=== PATIENT | male | born 1945 | race Caucasian/White ===

== ENCOUNTER 2022-09-06 10:53 | Inpatient (IN) ==
--- NOTE | 2022-08-24 15:40 | PAT Medication Instructions ---
Medication Instructions Date of Service August 24, 2022 Home Medications albuterol sulfate 90 mcg/actuation aerosol inhaler 1 inh inhalation QID PRN apixaban 2.5 mg tablet (Eliquis) 2.5 mg PO BID aspirin 81 mg tablet,delayed release 81 mg PO QAM atorvastatin 40 mg tablet 40 mg PO PM clopidogrel 75 mg tablet (Plavix) 75 mg PO DAILY cyanocobalamin (vitamin B-12) 1,000 mcg tablet 1,000 mcg PO 3XWK fluticasone fur. 200 mcg-umeclid 62.5 mcg-vilant 25 mcg inhalat.powder (Trelegy Ellipta) 1 inh inhalation DAILY PRN levothyroxine 75 mcg tablet 75 mcg PO QAM lisinopril 20 mg tablet 20 mg PO QAM montelukast 10 mg tablet (Singulair) 10 mg PO QAM yxaryqjzmurb-fthgqwwm-iklacr tablet (Multivitamin 50 Plus tablet) 1 tab PO QAM ASK your prescriber and surgeon apixaban 2.5 mg tablet (Eliquis) 2.5 mg PO BID aspirin 81 mg tablet,delayed release 81 mg PO QAM clopidogrel 75 mg tablet (Plavix) 75 mg PO DAILY DO NOT take the morning of surgery cyanocobalamin (vitamin B-12) 1,000 mcg tablet 1,000 mcg PO 3XWK lisinopril 20 mg tablet 20 mg PO QAM zrfuoysyyfhq-ihjctudd-vnfows tablet (Multivitamin 50 Plus tablet) 1 tab PO QAM Take morning of surgery With a small sip of water, OTHERWISE NOTHING TO EAT OR DRINK AFTER MIDNIGHT: albuterol sulfate 90 mcg/actuation aerosol inhaler 1 inh inhalation QID PRN(use if needed; please bring with you to hospital day of surgery if possible) fluticasone fur. 200 mcg-umeclid 62.5 mcg-vilant 25 mcg inhalat.powder (Trelegy Ellipta) 1 inh inhalation DAILY PRN(if needed) levothyroxine 75 mcg tablet 75 mcg PO QAM montelukast 10 mg tablet (Singulair) 10 mg PO QAM Take evening before surgery albuterol sulfate 90 mcg/actuation aerosol inhaler 1 inh inhalation QID PRN(if needed) atorvastatin 40 mg tablet 40 mg PO PM Other Notes If you have any questions please call us at [phone] or [phone] or [phone] or [phone]
--- NOTE | 2022-08-29 13:21 | Anesthesiology Consultation ---
Date of Service August 29, 2022 Assessment & Plan (1) Encounter for pre-operative examination: - COVID screening: Per assessment on 08/29: No known COVID-19 positive contacts or current COVID-19 related symptoms. Travel screen negative. Patient vaccinated. At surgeon discretion if preop Covid testing being done. - ASA/plavix/eliquis instructions per surgeon/prescriber - Awaiting most recent cardiology office visit (Dr. Garcia/). Chart Review Chart Review: Patient seen in Pre Admission Testing History Surgery Operation Date: 09/06/22 12:00 Proposed Procedures p Left Transcarotid Artery Revascularization - Ariel Seymour MD Height/Weight Height: 5 ft 10 in Weight: 104 kg Allergies Allergy/AdvReac Type Severity Reaction Status Date / Time rivaroxaban [From Xarelto] Allergy Intermediate Itching, Verified 08/25/22 09:20 rash Medications Home Medications Medication Instructions Recorded Confirmed Last Taken albuterol sulfate 90 mcg/actuation 1 inh inhalation QID PRN SHORT OF 08/24/22 08/24/22 Unknown aerosol inhaler BREATH apixaban 2.5 mg tablet (Eliquis) 2.5 mg PO BID 08/24/22 08/24/22 Unknown aspirin 81 mg tablet,delayed 81 mg PO QAM 08/24/22 08/24/22 Unknown release atorvastatin 40 mg tablet 40 mg PO PM 08/24/22 08/24/22 Unknown clopidogrel 75 mg tablet (Plavix) 75 mg PO DAILY 08/24/22 08/24/22 Unknown cyanocobalamin (vitamin B-12) 1,000 mcg PO 3XWK 08/24/22 08/24/22 Unknown 1,000 mcg tablet fluticasone fur. 200 mcg-umeclid 1 inh inhalation DAILY PRN SHORT 08/24/22 08/24/22 Unknown 62.5 mcg-vilant 25 mcg OF BREATH inhalat.powder (Trelegy Ellipta) levothyroxine 75 mcg tablet 75 mcg PO QAM 08/24/22 08/24/22 Unknown lisinopril 20 mg tablet 20 mg PO QAM 08/24/22 08/24/22 Unknown montelukast 10 mg tablet 10 mg PO QAM 08/24/22 08/24/22 Unknown (Singulair) eimvvtspgnpf-njrkxwbm-atjmpq 1 tab PO QAM 08/24/22 08/24/22 Unknown tablet (Multivitamin 50 Plus tablet) Past Medical History Medical History Acid reflux Occasional Arthritis Asthma CAD (coronary artery disease) 1996 > Stent x1 2018 > Stent "replaced" Follows with Dr. 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 DVT in 2015 History of COVID-19 06/2020 > symptoms resolved History of kidney stones History of prostate cancer s/p prostatectomy Hx of deep venous thrombosis 2006 > Post-op prostatectomy 2015 > Unknown etiology, has been on blood thinner since 2016 Hyperlipidemia Hypertension Hypothyroidism Exercise / Class Metabolic Activity II 4-5 Yardwork/Stairs/Walk up hill Past Family History Family History Other No family history of adverse response to anesthesia Past Surgical History Surgical History H/O prostatectomy H/O sinus surgery POLYPS REMOVED History of colonoscopy History of heart artery stent 1996 > Stent x1 2017 > Stent "replaced" History of lithotripsy History of tonsillectomy and adenoidectomy [place] teeth removed Past Anesthesia History No Hx of Anesthesia Complications and No Family Hx of Anesthesia Complications History of PONV No Hx of PONV and No Hx of Motion Sickness Social History Smoking Status: Former smoker tobacco type: cigarettes Do You Dip or Chew Tobacco: No Smoking End Date: Quit several years ago Hx Alcohol Use: Yes alcohol intake frequency: holidays/special occasions only Hx Substance Use: No substance use type: does not use Review of Systems Patient denies chest pain, shortness of breath, dyspnea on exertion, fever, chills, cough, wheezing, palpitations. Physical Exam Vital Signs VITALS BP 149/77 P 85 TEMP 97.5 SP02 97%RA RESP 18 PHYSICAL Full cervical extension range of motion. Full TMJ range of motion. TMD 4 finger breaths Mallampati Score 2 Dentition: intact, + crowns Lungs: clear throughout to auscultation Cardiac: regular rate and rhythm, no murmurs noted Spine: normal Carotid arteries: negative bruit Extremities: no edema Lab Results Anesthesia Preop Results Results Anesthesia Widget: WBC 8.03 K/ul (4.8-10.8) 08/29/22 Hgb 14.1 g/dl (14.0-18.0) 08/29/22 Hct 39.7 % (42.0-52.0) L 08/29/22 Plt 211 K/uL (130-400) 08/29/22 Na 139 mmol/L (136-145) 08/29/22 K 4.5 mmol/L (3.5-5.1) 08/29/22 Cl 105 mmol/L (98-107) 08/29/22 CO2 27 mmol/L (21-32) 08/29/22 BUN 35 mg/dl (6-23) H 08/29/22 Creat 1.47 mg/dl (0.6-1.4) H 08/29/22 Glucose Level 110 mg/dl (70-99(Fasting)) H 08/29/22 PT 10.7 Seconds (9.0-12.0) 08/29/22 PTT 27.3 Seconds (21.0-31.0) 08/29/22 INR 1.0 (0.9-1.1) 08/29/22 Blood Type A Positive 08/29/22 Antibody Screen NEGATIVE 08/29/22 Testing Electrocardiogram Date: 04/26/22 Sinus arrhythmia. 81 bpm. LAD. Consistent with LAFB. "ECG without significant abnormalities" Chest X-Ray Date: 08/29/22 FINDINGS: Lung volumes are normal. Lungs are clear. There is no pneumothorax or pleural effusion. Cardiac size is at the upper limits of normal. Mediastinal contours are normal. There is no evidence for pulmonary edema. IMPRESSION: No acute cardiopulmonary findings. Echocardiogram Date: 04/08/18 EF 55%. Mild LVH. No significant valvular disease. 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 Cardiac Catheterization Date: 04/05/18 One-vessel obstructive CAD of the LAD. Successful PCI with MYNOR of the mid LAD. Recommendations: Risk factor modification. Maximal medical therapy. Other Testing Neck CTA (08/22/22) Severe (80%) stenosis of the proximal left internal carotid artery due to extensive noncalcified and calcified plaque. Moderate stenosis at the origin of the left external carotid artery. Suspected moderate stenoses at the origins of the bilateral vertebral arteries, suboptimally assessed on this exam due to artifact. COVID-19 Risk Screen Screening Information COVID-19 Screen Date: 08/29/22 Exposure 21 Days Family/Household +COVID Last 21 Days: No Exposure 10 Days Any COVID Exposure Last 10 Days: No Symptoms Last 10 Days Experienced COVID Sx Last 10 Days: No + COVID 0-90 Days COVID + in Last 0-90 Days: No
[~2022-09-06 10:53] MED LIST: CEFAZOLIN 2,000 MG/15 ML SYR IV SCH; LACTATED RINGER'S 1,000 ML BAG IV SCH
[2022-09-06] MEDS ORDERED: ALBUMIN HUMAN 5% 12.5 GM/250 ML VIAL IV ONE (10:54)
--- NOTE | 2022-09-06 10:58 | History & Physical Report ---
Date of Service September 06, 2022 History of Present Illness Primary Care Provider: NO PCP Name: CHAGO VAUGHN Patient Number: [id number] : 1945 Date of Service: 08/17/2022 Chief Complaint: _Follow-up for carotid stenosis HPI: _Mr. Vaughn is an elderly male who presents to Dr. Seymour's vascular surgery clinic today for a 6-month follow-up visit regarding his history of carotid stenosis. Patient was originally seen by Dr. Seymour and myself about 6 months ago, after a carotid ultrasound performed at an outside facility had indicated worsening of his left ICA stenosis. At the time the velocities appeared to indicate approximately 80% stenosis. Since patient was asymptomatic from this, we advised him to return in 6 months for reevaluation with a new ultrasound. Patient denies any significant changes in his health since being seen here 6 months ago. He specifically denies any symptoms of cerebrovascular insufficiency, including amaurosis, extremity weakness numbness or tingling, difficulty speaking or swallowing, facial droop, sudden onset confusion, other concerns. His carotid ultrasound performed prior to today's appointment demonstrates over 90% stenosis of his left ICA, with end-diastolic velocities of 128 cm/s. Current Home Meds: (Last Updated 08/17 10:53) albuterol (Albuterol (Eqv-ProAir HFA) 90 mcg/inh inhalation aerosol) inhale 2 puffs by mouth and INTO THE LUNGS every 4 to 6 hours if needed apixaban (Eliquis 2.5 mg oral tablet) 2.5 mg PO bid aspirin (aspirin 81 mg oral delayed release tablet) 81 mg PO Daily atorvastatin (atorvastatin 40 mg oral tablet) take 1 tablet by mouth once daily cholecalciferol (Vitamin D3 1000 intl units (25 mcg) oral tablet) 25 mcg PO qMonWedFri cycloSPORINE ophthalmic (Restasis 0.05% ophthalmic emulsion) 1 drop both eyes q12h fluticasone-salmeterol (fluticasone-salmeterol Diskus 500 mcg-50 mcg) 1 puff inhaled bid fluticasone/umeclidinium/vilanterol (Trelegy Ellipta 100 mcg-62.5 mcg-25 mcg/inh inhalation powder) 1 puff inhaled Daily levothyroxine (levothyroxine 75 mcg (0.075 mg) oral tablet) take 1 tablet by mouth every morning ON AN EMPTY STOMACH lisinopril (lisinopril 20 mg oral tablet) 20 mg PO Daily montelukast (montelukast 10 mg oral tablet) 10 mg PO qPM omega-3 polyunsaturated fatty acids (EPA Fish Oil oral capsule) 1 cap PO Daily Allergies and Sensitivities: Xarelto(Contact dermatitis) Past Medical History: Problems: Bilateral carotid artery stenosis Bilateral jowls Carotid stenosis Benign essential HTN Atherosclerotic heart disease Pure hypercholesterolemia CAD (coronary artery disease) OBJECTIVE Vitals: Last Updated 08/17/22 10:52 Date Temp BP Location Pulse RR SpO2 Pain 08/17/22 128/52 70 98 02/16/22 124/56 Right Arm 02/16/22 126/54 Left Arm 71 96 Vital Signs are the last 3 documented. No Orthostatic Data Available Height and Weight: Last Updated 02/16/22 09:07 Date BMI Wt(kg) Wt(lb) Method Ht(cm) (ft-in) Method 02/16/22 105.3 232 Standing Scale Heights and Weights are the last 3 documented. Physical Exam Constitutional: In general patient is a healthy-appearing well-nourished well- developed elderly male in no distress. He is alert and oriented without any deficits. His left neck does demonstrate a faint bruit. His heart is regular. His lungs are decreased throughout but clear. His abdomen is soft nontender with normoactive bowel sounds in all 4 quadrants. Brachial radial and femoral pulses are +3. Lower extremities the pulses are +2. He has brisk capillary refill and no sign of distal ischemia. ASSESSMENT: _ PLAN: _ 1 ) _bilateral carotid stenosis Patient appears to have significantly worsened left ICA stenosis since being seen here 6 months ago. He may be at increased risk for CVA. Due to this increase in velocities, we recommended that he undergo a CTA for better evaluation of his carotid disease. We will make further recommendations after he returns to our office to discuss the CTA findings. This was discussed with the patient. He expresses understanding and agreement. He will call for any other questions. Thank you for letting us participate in the care of this patient. Signature Line Electronic Signature on File CC: Melanie Fitzgerald MD [address] [facility] [id number] * CC: Josesito Garcia MD [address] [place] [address] * Electronically Reviewed/Signed by: Becki Aggarwal PA-C Author Signature Dt/Tm:08/17/2022 01:16 PM [facility] [address], [address] [place] [address] Electronically Reviewed/Signed by: MD Martinez Pikeigngeoffrey Signature Dt/Tm: 08/21/2022 07:34 AM Manugrapher [facility] [address], [address] [place] [address] LM Result Type: HVI Outpt Note Date of Service: August 17, 2022 13:10 EST Authorization Status: Final Author or Import Date: ADAMS Aggarwal, Becki on August 17, 2022 13:16 EST Verified By: MD Lion, Ariel Kinsey on August 21, 2022 07:34 EST Encounter info: [id number], [place] [address], Clinic, 08/17/2022 - 08/17/2022 Chief Complaint Room #5- No new neurological symptoms. Bp at home is 120/70s. On Eliqquis with no bleeding issues. Reason for Consultation Left carotid artery stenosis History of Present Illness I had the pleasure of seeing Chago today for follow-up. As you know he is a 77-year-old male who was found to have a left internal carotid artery stenosis which has worsened. His CT angiogram showed greater than 80% narrowing of his left carotid artery. On reviewing the films it appears to be over 90%. He is asymptomatic for his carotid disease at this point. He has no complaints of claudication. Review of Systems 10 systems were reviewed. They are all negative except for the HPI. Physical Exam Vitals & Measurements Input and Output - Last 24 hours (Last 8 hours) No I/O Data Found: Patient is awake alert oriented x3. Is in no apparent distress. He does have a left carotid bruit. His lungs are clear. Heart had a regular rhythm. Abdominal exam is benign. His upper and lower extremity pulses are palpable. Neurologic exam is grossly intact. Assessment/Plan 1. Carotid stenosis, left At this point and recommended interventions of the carotid artery on the left side. He is a candidate for TCAR procedure. Risks options and benefits carotid endarterectomy and TCAR were discussed with the patient and his . They have elected to go ahead with the TCAR procedure. This will be scheduled in the near future. We will keep you informed of his to the results. Thank you very much for letting us participate in the care of this patient. Sincerely, Beto Seymour MD Problem List/Past Medical History Ongoing Atherosclerotic heart disease Benign essential HTN Bilateral carotid artery stenosis Bilateral jowls CAD (coronary artery disease) Carotid stenosis Carotid stenosis, left Pure hypercholesterolemia Historical No qualifying data Medications Inpatient No active inpatient medications Home Albuterol (Eqv-ProAir HFA) 90 mcg/inh inhalation aerosol aspirin 81 mg oral delayed release tablet, 81 mg= 1 tab, PO, Daily atorvastatin 40 mg oral tablet Eliquis 2.5 mg oral tablet, 2.5 mg= 1 tab, PO, bid EPA Fish Oil oral capsule, 1 cap, PO, Daily fluticasone-salmeterol Diskus 500 mcg-50 mcg, 1 puff, inhaled, bid levothyroxine 75 mcg (0.075 mg) oral tablet lisinopril 20 mg oral tablet, 20 mg= 1 tab, PO, Daily montelukast 10 mg oral tablet, 10 mg= 1 tab, PO, qPM Plavix 75 mg oral tablet, 75 mg= 1 tab, PO, Daily Restasis 0.05% ophthalmic emulsion, 1 drop, both eyes, q12h Trelegy Ellipta 100 mcg-62.5 mcg-25 mcg/inh inhalation powder, 1 puff, inhaled, Daily Vitamin D3 1000 intl units (25 mcg) oral tablet, 25 mcg= 1 tab, PO, qMonWedFri Allergies Xarelto (Contact dermatitis) Social History Smoking Status Former Smoker, quit > 1 yr Signature Line Electronic Signature on File Ariel Seymour MD Author Signature Dt/Tm: 08/22/2022 02:23 PM Manugrapher Juvenal Oates [facility] [place], [address] [place], [place] [address] Result Type: .Outpt Ltr Date of Service: August 22, 2022 14:19 EST Authorization Status: Final Subject: Consult Note Author or Import Date: MD Seymour Eugene J on August 22, 2022 14:23 EST Verified By: MD Seymour Eugene J on August 22, 2022 14:23 EST Encounter info: [id number], [facility], Clinic, 08/22/2022 - 08/22/2022 Allergies Allergy/AdvReac Type Severity Reaction Status Date / Time rivaroxaban [From Xarelto] Allergy Intermediate Itching, Verified 08/25/22 09:20 rash Home Medications Medication Instructions Recorded Confirmed Type albuterol sulfate 90 mcg/actuation 1 inh inhalation QID PRN SHORT OF 08/24/22 08/24/22 History aerosol inhaler BREATH apixaban 2.5 mg tablet (Eliquis) 2.5 mg PO BID 08/24/22 08/24/22 History aspirin 81 mg tablet,delayed 81 mg PO QAM 08/24/22 08/24/22 History release atorvastatin 40 mg tablet 40 mg PO PM 08/24/22 08/24/22 History clopidogrel 75 mg tablet (Plavix) 75 mg PO DAILY 08/24/22 08/24/22 History cyanocobalamin (vitamin B-12) 1,000 mcg PO 3XWK 08/24/22 08/24/22 History 1,000 mcg tablet fluticasone fur. 200 mcg-umeclid 1 inh inhalation DAILY PRN SHORT 08/24/22 08/24/22 History 62.5 mcg-vilant 25 mcg OF BREATH inhalat.powder (Trelegy Ellipta) levothyroxine 75 mcg tablet 75 mcg PO QAM 08/24/22 08/24/22 History lisinopril 20 mg tablet 20 mg PO QAM 08/24/22 08/24/22 History montelukast 10 mg tablet 10 mg PO QAM 08/24/22 08/24/22 History (Singulair) cukmoksutdfb-ulgnrvru-izsavu 1 tab PO QAM 08/24/22 08/24/22 History tablet (Multivitamin 50 Plus tablet) Past Med/Surg History Medical History Acid reflux Occasional Arthritis Asthma CAD (coronary artery disease) 1996 > Stent x1 2018 > Stent "replaced" Follows with Dr. 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 DVT in 2015 History of COVID-19 06/2020 > symptoms resolved History of kidney stones History of prostate cancer s/p prostatectomy Hx of deep venous thrombosis 2006 > Post-op prostatectomy 2016 > Unknown etiology, has been on blood thinner since 2016 Hyperlipidemia Hypertension Hypothyroidism Surgical History H/O prostatectomy H/O sinus surgery POLYPS REMOVED History of colonoscopy History of heart artery stent 1996 > Stent x1 2017 > Stent "replaced" History of lithotripsy History of tonsillectomy and adenoidectomy [place] teeth removed Family History Other No family history of adverse response to anesthesia Social History Smoking Status: Former smoker Smoking End Date: Quit several years ago; Second Hand Exposure: No; Do You Dip or Chew Tobacco: No; Hx Alcohol Use: Yes Hx Substance Use: No Preferred Language: Malian Laboratory Tech Required: No Beliefs That Will Affect Care: None Current Living Situation: Spouse Feels Safe at Home: Yes Safety Concerns: Feels Safe At This Time Assistive Devices: Glasses
[2022-09-06] MEDS ORDERED: fentaNYL citrate 100 MCG/2 ML VIAL ONE ×2 (11:05→14:18)
[2022-09-06] MEDS ORDERED: SUGAMMADEX SODIUM 200 MG/2 ML VIAL IV ONE (11:05)
[2022-09-06] MEDS ORDERED: KETAMINE 50 MG/5 ML SYRINGE ONE (11:05)
[2022-09-06] MEDS ORDERED: MIDAZOLAM HCL 1 MG/ML 2ML VIAL ONE (11:05)
--- NOTE | 2022-09-06 11:40 | History & Physical Bridge Note ---
Date of Service September 06, 2022 History & Physical Bridge Note I have examined the patient, reviewed the History & Physical and in the interval since the performance of the History & Physical I have noted the following changes of clinical significance: no changes noted
[2022-09-06] MEDS ORDERED: HYDROmorphone INJ 1 MG/ML SYRINGE IV PRN (12:34)
[2022-09-06] MEDS ORDERED: LABETALOL HCL IV 5 MG/ML 20ML IV PRN (12:34)
[2022-09-06] MEDS ORDERED: PROMETHAZINE HCL 12.5 MG in SODIUM CHLORIDE 0.9% 50 ML IV PRN (12:34)
[2022-09-06] MEDS ORDERED: ONDANSETRON INJ 2 MG/ML 2 ML VIAL IV PRN ×2 (12:34→16:10)
[2022-09-06] MEDS ORDERED: NALOXONE HCL 0.4 MG/1 ML VIAL/CARP IV PRN (12:34)
[2022-09-06] MEDS ORDERED: ePHEDrine sulfate 50 MG/ML AMP IV PRN (12:34)
[2022-09-06] MEDS ORDERED: fentaNYL citrate 100 MCG/2 ML VIAL IV PRN (12:34)
[2022-09-06] MEDS ORDERED: ATROPINE SULFATE 0.1 MG/ML 10ML SYR IV PRN (12:34)
[2022-09-06] MEDS ORDERED: FLUMAZENIL 0.1 MG/1 ML 10 ML VIAL IV PRN (12:34)
[2022-09-06] MEDS ORDERED: THROMBIN FOR SOLN 20000 UNIT KIT ONE (12:44)
[2022-09-06] MEDS ORDERED: GELATIN SPONGE SZ 100 ONE (12:45)
[2022-09-06] MEDS ORDERED: HEPARIN SOD (PORCINE) 1000 UNIT/ML ONE (12:46)
[2022-09-06] MEDS ORDERED: DEXAMETHASONE SOD INJ 4 MG/ML VIAL ONE (13:30)
[2022-09-06] MEDS ORDERED: PROTAMINE SULFATE 10 MG/ML 5 ML VIAL IV ONE (13:30)
[2022-09-06] MEDS ORDERED: LIDOCAINE 2% MPF LOCAL 5 ML VIAL INFIL ONE (13:30)
[2022-09-06] MEDS ORDERED: GLYCOPYRROLATE 0.2 MG/ML VIAL ONE (13:30)
[2022-09-06] MEDS ORDERED: ONDANSETRON INJ 2 MG/ML 2 ML VIAL ONE ×2 (13:30)
[2022-09-06] MEDS ORDERED: PROPOFOL IV EMULSION 10 MG/ML 20 ML VIAL IV ONE ×2 (13:30→14:17)
[2022-09-06] MEDS ORDERED: ROCURONIUM BROMIDE 10 MG/ML 5 ML VIAL IV ONE ×2 (13:30→13:39)
[2022-09-06] MEDS ORDERED: VISIPAQUE IV ONE (14:01)
--- NOTE | 2022-09-06 14:24 | Operative Report ---
Post Operative Report Pre & Post Diagnosis Operation Date: 09/06/22 13:00 Pre-Op Diagnosis: Left Internal Carotid Artery Stenosis Post-Op Diagnosis: Left Internal Carotid Artery Stenosis I identified the patient and participated in the time-out.: Yes Procedure Operation Date: 09/06/22 13:00 Actual Procedures p Left Transcarotid Artery Revascularization(Left) - Ariel Seymour MD Surgeon Ariel Seymour MD Education And Training Manager Muna,PAC Estimated Blood Loss 20 Findings Consistent with Post-Op Diagnosis Specimens none Anesthesia Type General Complications none Disposition Accompanied Patient To Recovery: No Disposition: Recovery Room Indications This is a 77-year-old gentleman with a left internal carotid artery stenosis. His narrowing has worsened over the last 6 months since his last visit. CT scan confirmed a greater than 80% narrowing of his left internal carotid artery. TCAR and endarterectomy were discussed with the patient. He elected to go ahead with a TCAR procedure. I have discussed the risks options and benefits of the procedure with the patient. The patient understands the risks options and benefits and agrees to the procedure. Description of Procedure The patient was taken to the operating room and placed in supine position. After general anesthesia was accomplished the groins and left side of the neck and chest were prepped and draped in a sterile manner. Timeout was performed and the patient was identified. A transverse incision was made just above the clavicle between the heads of the sternocleidomastoid. This was carried down to where the common carotid artery was identified. It was isolated and slung with an umbilical tape. It was given 9000units of heparin at that time. Ultrasound was then used to localize the left common femoral vein. The vein was patent and compressed easily. Under ultrasound guidance the right common femoral vein was punctured and the venous sheath was inserted. This was aspirated and flushed with heparinized saline. An ACT at that time was 299. A U stitch of 6-0 prolene was placed on the common carotid artery. Using micropuncture technique the common carotid artery was punctured. The micro sheath was inserted to 3 cm. Injection was then done showing the bifurcation. There was a significant lesion seen at the origin of the internal carotid artery on the left side. We then inserted the J-wire and keep it short of the bifurcation of the carotid artery. The TCAR sheath was inserted. Once it was in place and held against the artery it was sutured to the chest wall and the incision edge. We then flushed the tubing appropriately. The venous return tubing was clamped onto the TCAR sheath. It was flushed through and then attached to the venous inflow sheath in the left groin. The sheath was checked for flow. We then inserted an 014 wire. The wire was passed through the lesion into the petrous portion of the internal carotid wtih the help of a kumpe catheter.. The 5 balloon was then advanced to the lesion. The lesion was then predilated with the 5 mm balloon. The balloon was removed. We then inserted the 9 x 40 stent. This was deployed across the lesion without difficulty. The catheter was removed. The carotid was allowed to go 2 minutes with flow reversal. Completion angiogram was done at that time which showed very mild residual stenosis. At that point the common carotid artery was unclamped. The venous return tubing was clamped and removed from the TCAR sheath. The blood was allowed to flow back into the venous system. Once this was completed the sheath was pulled from the groin and pressure was applied. The TCAR sheath was then removed and the 6-0 Prolene suture securely tied. Hemostasis was noted of the puncture site. Wound was irrigated with Ancef solution. Adequate hemostasis was obtained of the wound. Once this was noted the wound was closed in usual fashion using a 3-0 Vicryl suture for the subcutaneous layer and a 4-0 subcuticular Vicryl suture for the skin edges. Dermabond was used for dressing.The patient left the operation room in satisfactory condition and tolerated the procedure well. All needle and sponge counts were correct at the end of the procedure. Becki Aggarwal Pac assisted due to lack of resident availability and was necessary for positioning, draping, retraction, wound closure deep layers, subcutaneous tissue, and skin closure and was necessary for assisting with the case. I attest to the content of the Intraoperative Record and any orders documented therein. Any exceptions are noted below.
--- NOTE | 2022-09-06 15:07 | Anesthesiology Progress Note ---
Date of Service September 06, 2022 Anesthesia Post Procedure Vital Signs Vital Signs: Temp Pulse Pulse Resp BP BP BP 09/06/22 15:00 69 14 144/65 H 136/76 09/06/22 14:50 74 12 140/64 135/74 09/06/22 14:41 36.3 C L 78 78 17 157/62 H 09/06/22 11:21 36.5 C 78 20 163/88 H 162/85 H Pulse Ox O2 Del Method O2 Flow Rate 09/06/22 15:00 100 Oxymask 4 09/06/22 14:50 98 Oxymask 4 09/06/22 14:41 99 Oxymask 7 09/06/22 11:21 98 Room Air Pain Intensity Left Neck: Pain Intensity: 5 Transfer of Care Handoff Completed per policy Notes Mental Status: alert / awake / arousable Patient Amnestic to Procedure: Yes Nausea / Vomiting: adequately controlled Pain: adequately controlled Airway Patency, RR, SpO2: stable & adequate BP & HR: stable & adequate Hydration State: stable & adequate Anesthetic Complications: no major complications apparent Notes: neurologically intact/non-focal
[2022-09-06] MEDS ORDERED: ALBUTEROL HFA 8 GM INHALER INH PRN (16:10)
[2022-09-06] MEDS ORDERED: NON-FORMULARY MEDICATION (Fluticasone-Umeclidin-Vilanter [Trelegy Ellipta] 200-62.5-25 mcg INH PRN (16:10)
[2022-09-06] MEDS ORDERED: LACTATED RINGER'S 1,000 ML IV SCH (16:10)
--- NOTE | 2022-09-06 16:30 | Critical Care Consultation ---
Date of Consultation September 06, 2022 Assessment & Plan (1) Hx of deep venous thrombosis: (2) Carotid stenosis: (3) Hypertension: (4) Hyperlipidemia: Plan Impression: 77-year-old male with asymptomatic carotid stenosis status post TCAR today. He has some postoperative hoarseness and dysphagia. Recommendations: 1. Status post TCAR: Management per vascular surgery. 2. Hypertension: Continue the patient's outpatient hypertensive regimen to. Blood pressure parameters have been established by vascular surgery. Continue labetalol on an as-needed basis. 3. Hyperlipidemia: Continue lipid-lowering therapy. 4. Postoperative hoarseness: The patient has no other neurological deficits. Unclear if this is related to artificial airway associated with the surgery. We will follow for now. We will have respiratory therapy use cool humidified oxygen if needed. If it persists, may need to have ENT evaluate vocal cords. 5. Await postoperative labs. Additional intervention based on those results. 6. History of asthma: Not bronchospastic currently. Uses inhalers on an as- needed basis. Continue as needed bronchodilators. The patient's remaining critical care issues have been well addressed by the vascular surgery service. We will continue to follow with you. Feel free to contact us with questions or concerns History of Present Illness Attending Physician: Ariel Seymour MD History of Present Illness Asked by vascular surgery to assist with critical care management of this patient status post TCAR. History is obtained from discussion with the patient and review of the electronic medical record. Patient is a 77-year-old male with a history of hyperlipidemia who has been followed in the vascular clinic for asymptomatic carotid stenosis. He underwent follow-up ultrasound which indicated progression of the left internal carotid stenosis with over 90% stenotic lesion with an end-diastolic velocity of 128 cm/s. He was recommended to undergo TCAR. He was taken to the OR for that procedure today. He returns to the ICU. He currently complains only of some hoarseness and some mild difficulty swallowing which is new compared to preoperatively. He is not having any neurological complaints. He complains of some discomfort at the surgical site. The patient denies any prior history of diabetes. He does have a history of coronary artery disease. He uses inhalers on an as-needed basis. 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 Allergies Allergy/AdvReac Type Severity Reaction Status Date / Time rivaroxaban [From Xarelto] Allergy Intermediate Itching, Verified 09/06/22 11:24 rash Home Medications Medication Instructions Recorded Confirmed Type albuterol sulfate 90 mcg/actuation 1 inh inhalation QID PRN SHORT OF 08/24/22 09/06/22 History aerosol inhaler BREATH apixaban 2.5 mg tablet (Eliquis) 2.5 mg PO BID 08/24/22 09/06/22 History aspirin 81 mg tablet,delayed 81 mg PO QAM 08/24/22 09/06/22 History release atorvastatin 40 mg tablet 40 mg PO PM 08/24/22 09/06/22 History clopidogrel 75 mg tablet (Plavix) 75 mg PO DAILY 08/24/22 09/06/22 History cyanocobalamin (vitamin B-12) 1,000 mcg PO 3XWK 08/24/22 09/06/22 History 1,000 mcg tablet fluticasone fur. 200 mcg-umeclid 1 inh inhalation DAILY PRN SHORT 08/24/22 09/06/22 History 62.5 mcg-vilant 25 mcg OF BREATH inhalat.powder (Trelegy Ellipta) levothyroxine 75 mcg tablet 75 mcg PO QAM 08/24/22 09/06/22 History lisinopril 20 mg tablet 20 mg PO QAM 08/24/22 09/06/22 History montelukast 10 mg tablet 10 mg PO QAM 08/24/22 09/06/22 History (Singulair) xrvpmmnazuqf-[id number]-[id number] 1 tab PO QAM 08/24/22 09/06/22 History tablet (Multivitamin 50 Plus tablet) Patient History Medical History (Updated 09/06/22 @ 16:27 by Redd Saucedo MD) Acid reflux Occasional Arthritis Asthma CAD (coronary artery disease) 1996 > Stent x1 2017 > Stent "replaced" Follows with Dr. 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 DVT in 2016 History of COVID-19 06/2020 > symptoms resolved History of kidney stones History of prostate cancer s/p prostatectomy Hx of deep venous thrombosis 2006 > Post-op prostatectomy 2016 > Unknown etiology, has been on blood thinner since 2016 Hyperlipidemia Hypertension Hypothyroidism Surgical History H/O prostatectomy H/O sinus surgery POLYPS REMOVED History of colonoscopy History of heart artery stent 1996 > Stent x1 2017 > Stent "replaced" History of lithotripsy History of tonsillectomy and adenoidectomy [place] teeth removed Family History Other No family history of adverse response to anesthesia Social History Smoking Status: Former smoker Smoking End Date: Quit several years ago; Second Hand Exposure: No; Do You Dip or Chew Tobacco: No; Hx Alcohol Use: Yes Hx Substance Use: No Preferred Language: [place]ian [employer] Required: No Beliefs That Will Affect Care: None Current Living Situation: Spouse Feels Safe at Home: Yes Safety Concerns: Feels Safe At This Time Assistive Devices: Glasses Review of Systems Review of Systems: All systems reviewed & are unremarkable except as noted in Subjective Physical Exam Constitutional: WD/WN, vitals as above Neck: trachea midline, no thyromegaly Respiratory: normal respiratory effort, lungs clear to auscultation Cardiovascular: RRR, no murmur, no edema Gastrointestinal (Abdomen): normal bowel sounds, soft, nontender, no hepatosplenomegaly Musculoskeletal: Extremities: extremities normal to inspection Skin: no rashes, warm and dry Neurologic: Nonfocal exam Lymphatic: no cervical lymphadenopathy Results & Data Results & Data ([facility]) Vital Signs (Past 12 Hours) Vital Signs Temp Pulse Pulse Resp BP BP BP 09/06/22 15:40 74 12 162/65 H 131/70 09/06/22 15:30 74 12 151/64 H 143/78 H 09/06/22 15:20 72 12 153/66 H 150/70 H 09/06/22 15:10 36.3 C L 71 12 144/63 H 136/70 09/06/22 15:00 69 14 144/65 H 136/76 09/06/22 14:50 74 12 140/64 135/74 09/06/22 14:41 36.3 C L 78 78 17 157/62 H 09/06/22 11:21 36.5 C 78 20 163/88 H 162/85 H Pulse Ox O2 Del Method O2 Flow Rate 09/06/22 15:40 96 Room Air 09/06/22 15:30 96 Room Air 09/06/22 15:20 98 Room Air 09/06/22 15:10 96 Room Air 09/06/22 15:00 100 Oxymask 4 09/06/22 14:50 98 Oxymask 4 09/06/22 14:41 99 Oxymask 7 09/06/22 11:21 98 Room Air Critical Care Results & Data Vital Signs (Past 12 Hours) Vital Signs Temp Pulse Pulse Resp BP BP BP 09/06/22 15:40 74 12 162/65 H 131/70 09/06/22 15:30 74 12 151/64 H 143/78 H 09/06/22 15:20 72 12 153/66 H 150/70 H 09/06/22 15:10 36.3 C L 71 12 144/63 H 136/70 09/06/22 15:00 69 14 144/65 H 136/76 09/06/22 14:50 74 12 140/64 135/74 09/06/22 14:41 36.3 C L 78 78 17 157/62 H 09/06/22 11:21 36.5 C 78 20 163/88 H 162/85 H Pulse Ox O2 Del Method O2 Flow Rate 09/06/22 15:40 96 Room Air 09/06/22 15:30 96 Room Air 09/06/22 15:20 98 Room Air 09/06/22 15:10 96 Room Air 09/06/22 15:00 100 Oxymask 4 09/06/22 14:50 98 Oxymask 4 09/06/22 14:41 99 Oxymask 7 09/06/22 11:21 98 Room Air Lab & Micro Results (Past 24 Hours) No Data to Display No Data to Display No Data to Display I & O Totals 24 Hours 09/05/22 09/06/22 09/07/22 06:59 06:59 06:59 Intake Total 900 / 900 Output Total Balance 880 / 880 Cumulative 08/22/22 14:48 thru 09/06/22 15:16 Intake Total 900 Output Total 20 Balance 880 RT Ventilator Mngmt (Last Documented) Ventilator Ordered Settings Respiratory Rate 12 09/06/22 15:40 Ventilator - PT Measurements Respiratory Rate 12 Coding Level of Care Code INP/OBS CONSULT LVL 3, 45 MIN Diagnoses Hx of deep venous thrombosis Z86.718 Carotid stenosis I65.29 Hypertension I10 Hyperlipidemia E78.5
[2022-09-06] MEDS: oxyCODONE/ACETAMINOPHEN 5mg/325mg TAB PO PRN ×2 (16:35→20:02)
[2022-09-06] MEDS ORDERED: hydrALAZINE HCL 20 MG/ML VIAL IV ONE (17:15)
[2022-09-06] MEDS: APIXABAN 2.5 MG TAB PO SCH (20:02)
[2022-09-06] MEDS: ceFAZolin 2000MG 2,000 MG/15 ML SYR IV SCH (20:03)
[2022-09-06] MEDS ORDERED: ATORVASTATIN 40 MG TAB PO SCH (21:00)
[2022-09-07] MEDS: ceFAZolin 2000MG 2,000 MG/15 ML SYR IV SCH (04:22)
[2022-09-07] MEDS ORDERED: LEVOTHYROXINE SODIUM 75 MCG TABLET PO SCH (06:30)
[2022-09-07] MEDS ORDERED: ALUMINUM/MAGNESIUM/SIMETH (MAALOX MAX) 30 ML UDC PO STA (08:13)
--- NOTE | 2022-09-07 08:13 | Critical Care Progress Note ---
Date of Service September 07, 2022 Assessment & Plan (1) Hx of deep venous thrombosis: (2) Carotid stenosis: (3) Hypertension: (4) Hyperlipidemia: Plan Impression: 77-year-old male with asymptomatic carotid stenosis postop day #1 TCAR. He is doing well clinically but complains of some reflux and hiccups. Recommendations: 1. Status post TCAR: Management per vascular surgery. 2. Hypertension: Continue the patient's outpatient hypertensive regimen. Okay to discontinue arterial line 3. Hyperlipidemia: Continue lipid-lowering therapy. 4. Postoperative hoarseness: Improving. Continue to follow clinically. 5. Reflux with hiccups. Will place on oral Mylanta to see if that offers him some clinical benefit 6. History of asthma: Not bronchospastic currently. Uses inhalers on an as- needed basis. Continue as needed bronchodilators. The patient's remaining critical care issues appear resolved. Critical care services will sign off. Disposition per vascular surgery. Admission and Anticipated Discharge Date Admission Date: September 06, 2022 Subjective Patient seen and examined. EMR reviewed. Discussed with critical care nurse at bedside. Patient states his hoarseness is better. He has some slight swelling at his surgical site. He is complaining of some hiccups and reflux. Has been hemodynamically stable. He was able to tolerate a diet. No chest pain shortness of breath or any neurological symptoms. Review of Systems Review of Systems: All systems reviewed & are unremarkable except as noted in Subjective Physical Exam Constitutional: WD/WN, vitals as above Neck: trachea midline, no thyromegaly Respiratory: normal respiratory effort, lungs clear to auscultation Cardiovascular: RRR, no murmur, no edema Gastrointestinal (Abdomen): normal bowel sounds, soft, nontender, no hepatosplenomegaly Musculoskeletal: Extremities: extremities normal to inspection Skin: no rashes, warm and dry Lymphatic: no cervical lymphadenopathy Results & Data Results & Data ([facility]) Vital Signs (Past 12 Hours) Vital Signs Temp Pulse Resp BP Pulse Ox 09/07/22 04:01 69 14 95 09/07/22 04:01 163/70 H 09/07/22 04:00 76 13 93 09/07/22 03:50 72 12 95 09/07/22 03:40 76 10 L 94 09/07/22 03:30 80 15 95 09/07/22 03:30 186/90 H 09/07/22 03:20 73 12 93 09/07/22 03:10 74 13 92 09/07/22 03:00 76 13 93 09/07/22 03:00 162/74 H 09/07/22 02:50 76 22 97 09/07/22 02:40 79 12 94 09/07/22 02:31 72 13 93 09/07/22 02:31 129/68 09/07/22 02:30 72 14 92 09/07/22 02:20 76 12 94 09/07/22 02:15 73 15 96 09/07/22 02:15 162/75 H 09/07/22 02:10 86 14 97 09/07/22 02:00 72 14 94 09/07/22 01:50 79 13 95 09/07/22 01:45 84 17 97 09/07/22 01:30 81 13 93 09/07/22 01:30 128/57 L 09/07/22 01:20 77 15 94 09/07/22 01:10 76 14 94 09/07/22 01:00 84 16 94 09/07/22 01:00 143/75 H 09/07/22 00:50 80 11 L 96 09/07/22 00:40 75 11 L 95 09/07/22 00:30 79 16 93 09/07/22 00:30 130/72 09/07/22 00:20 73 19 96 09/07/22 00:10 81 12 96 09/07/22 00:00 84 12 91 09/07/22 00:00 125/61 09/06/22 23:50 73 14 93 09/06/22 23:40 72 14 92 09/06/22 23:30 74 14 94 09/06/22 23:30 118/64 09/06/22 23:20 73 14 93 09/06/22 23:10 74 12 94 09/06/22 23:00 76 10 L 94 09/06/22 23:00 111/73 09/06/22 22:50 82 22 97 09/06/22 22:40 80 11 L 95 09/06/22 22:30 78 7 L 93 09/06/22 22:30 132/65 09/06/22 22:20 77 8 L 93 09/06/22 22:10 75 13 94 09/07/22 00:00 80 02/15/23 23:10 36.8 C 09/06/22 22:00 75 14 93 09/06/22 22:00 134/62 09/06/22 21:50 75 12 95 09/06/22 21:40 77 12 91 09/06/22 21:30 79 10 L 91 09/06/22 21:30 132/67 09/06/22 21:20 75 11 L 94 09/06/22 21:10 85 10 L 93 09/06/22 21:00 75 11 L 94 09/06/22 21:00 122/67 09/06/22 20:50 82 14 92 09/06/22 20:40 78 13 92 09/06/22 20:30 83 15 94 09/06/22 20:30 122/64 09/06/22 20:20 84 15 97 Critical Care Results & Data Vital Signs (Past 12 Hours) Vital Signs Temp Pulse Resp BP Pulse Ox 09/07/22 04:01 69 14 95 09/07/22 04:01 163/70 H 09/07/22 04:00 76 13 93 09/07/22 03:50 72 12 95 09/07/22 03:40 76 10 L 94 09/07/22 03:30 80 15 95 09/07/22 03:30 186/90 H 09/07/22 03:20 73 12 93 09/07/22 03:10 74 13 92 09/07/22 03:00 76 13 93 09/07/22 03:00 162/74 H 09/07/22 02:50 76 22 97 09/07/22 02:40 79 12 94 09/07/22 02:31 72 13 93 09/07/22 02:31 129/68 09/07/22 02:30 72 14 92 09/07/22 02:20 76 12 94 09/07/22 02:15 73 15 96 09/07/22 02:15 162/75 H 09/07/22 02:10 86 14 97 09/07/22 02:00 72 14 94 09/07/22 01:50 79 13 95 09/07/22 01:45 84 17 97 09/07/22 01:30 81 13 93 09/07/22 01:30 128/57 L 09/07/22 01:20 77 15 94 09/07/22 01:10 76 14 94 09/07/22 01:00 84 16 94 09/07/22 01:00 143/75 H 09/07/22 00:50 80 11 L 96 09/07/22 00:40 75 11 L 95 09/07/22 00:30 79 16 93 09/07/22 00:30 130/72 09/07/22 00:20 73 19 96 09/07/22 00:10 81 12 96 09/07/22 00:00 84 12 91 09/07/22 00:00 125/61 09/06/22 23:50 73 14 93 09/06/22 23:40 72 14 92 09/06/22 23:30 74 14 94 09/06/22 23:30 118/64 09/06/22 23:20 73 14 93 09/06/22 23:10 74 12 94 09/06/22 23:00 76 10 L 94 09/06/22 23:00 111/73 09/06/22 22:50 82 22 97 09/06/22 22:40 80 11 L 95 09/06/22 22:30 78 7 L 93 09/06/22 22:30 132/65 09/06/22 22:20 77 8 L 93 09/06/22 22:10 75 13 94 09/07/22 00:00 80 09/06/22 23:10 36.8 C 09/06/22 22:00 75 14 93 09/06/22 22:00 134/62 09/06/22 21:50 75 12 95 09/06/22 21:40 77 12 91 09/06/22 21:30 79 10 L 91 09/06/22 21:30 132/67 09/06/22 21:20 75 11 L 94 09/06/22 21:10 85 10 L 93 09/06/22 21:00 75 11 L 94 09/06/22 21:00 122/67 09/06/22 20:50 82 14 92 09/06/22 20:40 78 13 92 09/06/22 20:30 83 15 94 09/06/22 20:30 122/64 09/06/22 20:20 84 15 97 Lab & Micro Results (Past 24 Hours) No Data to Display No Data to Display No Data to Display I & O Totals 24 Hours 09/06/22 09/07/22 09/08/22 06:59 06:59 06:59 Intake Total 3200 / 3200 Output Total 670 / 670 Balance 2530 / 2530 Cumulative 08/22/22 14:48 thru 09/07/22 06:31 Intake Total 3200 Output Total 670 Balance 2530 RT Ventilator Mngmt (Last Documented) Ventilator Ordered Settings Respiratory Rate 14 09/07/22 04:01 Ventilator - PT Measurements Respiratory Rate 14 Coding Level of Care Code 03336 SUB INP/OBS CARE 2/35MIN Diagnoses Hx of deep venous thrombosis Z86.718 Carotid stenosis I65.29 Hypertension I10 Hyperlipidemia E78.5
[2022-09-07] MEDS: APIXABAN 2.5 MG TAB PO SCH (08:44)
[2022-09-07] MEDS ORDERED: UMECLIDINIUM/VILANTEROL 62.5/25MCG 7 PUFFS/INHALER INH SCH (09:00)
[2022-09-07] MEDS ORDERED: CEROVITE ADV FORMULA TAB PO SCH (09:00)
[2022-09-07] MEDS ORDERED: MONTELUKAST SODIUM 10 MG TABLET PO SCH (09:00)
[2022-09-07] MEDS ORDERED: lisinopril 20 MG TAB PO SCH (09:00)
[2022-09-07] MEDS ORDERED: FLUTICASONE FUROATE 200MCG 14 PUFFS/INHALER INH SCH (09:00)
[2022-09-07] MEDS ORDERED: ASPIRIN 81 MG ECTAB PO SCH (09:00)
[2022-09-07] MEDS ORDERED: CLOPIDOGREL BISULFATE 75 MG TAB PO SCH (09:00)
--- NOTE | 2022-09-07 12:46 | Surgery Progress Note ---
Date of Service September 07, 2022 Assessment & Plan (1) S/P arterial stent: Plan: Patient day #1 after left carotid stenting. Doing well. Will D/C today. Admission and Anticipated Discharge Date Admission Date: September 06, 2022 Subjective Patient's only complaint is reflux. No problems with swallowing or difficulty breathting Physical Exam Constitutional: WD/WN, vitals as above Neck: trachea midline Respiratory: normal respiratory effort; no respiratory distress Auscultation: lungs clear to auscultation bilaterally Cardiovascular: Rate/Rhythm: regular rate and regular rhythm Gastrointestinal (Abdomen): Inspection/Auscultation: abdomen normal to inspec tion; abdomen not distended Percussion/Palpation: abdomen soft Musculoskeletal: no cyanosis or clubbing, extremities motor strength 5/5 Skin: + incision (Mild edema of left supraclavicular area with ecchymosis. Soft to palpation) Neurologic: CN's II-XI intact bilaterally and moves all extremities Psychiatric: Orientation: alert and oriented x 3 Results & Data ([facility]) Vital Signs (Past 12 Hours) Vital Signs Temp Pulse Resp BP Pulse Ox O2 Del Method 09/07/22 10:31 84 18 95 09/07/22 10:31 123/61 09/07/22 10:00 92 H 18 96 09/07/22 10:00 123/88 09/07/22 09:30 89 10 L 95 09/07/22 09:30 125/79 09/07/22 09:00 94 H 19 96 09/07/22 09:00 136/84 09/07/22 08:31 79 14 95 09/07/22 08:31 152/72 H 09/07/22 08:00 88 15 96 09/07/22 08:00 160/69 H 09/07/22 07:01 140/63 09/07/22 07:01 86 17 95 09/07/22 07:00 89 15 94 09/07/22 06:31 84 11 L 95 09/07/22 06:31 162/83 H 09/07/22 06:01 176/42 H 09/07/22 06:01 87 16 94 09/07/22 06:00 83 14 96 09/07/22 05:30 164/89 H 09/07/22 05:30 82 22 95 09/07/22 05:01 72 14 94 09/07/22 05:01 152/81 H 09/07/22 05:00 78 11 L 94 09/07/22 04:30 172/88 H 09/07/22 04:30 74 11 L 95 09/07/22 08:00 Room Air 09/07/22 08:00 36.7 C 09/07/22 04:01 69 14 95 09/07/22 04:01 163/70 H 09/07/22 04:00 76 13 93 09/07/22 03:50 72 12 95 09/07/22 03:40 76 10 L 94 09/07/22 03:30 80 15 95 09/07/22 03:30 186/90 H 09/07/22 03:20 73 12 93 09/07/22 03:10 74 13 92 09/07/22 03:00 76 13 93 09/07/22 03:00 162/74 H 09/07/22 02:50 76 22 97 09/07/22 02:40 79 12 94 09/07/22 02:31 72 13 93 09/07/22 02:31 129/68 09/07/22 02:30 72 14 92 09/07/22 02:20 76 12 94 09/07/22 02:15 73 15 96 09/07/22 02:15 162/75 H 09/07/22 02:10 86 14 97 09/07/22 02:00 72 14 94 09/07/22 01:50 79 13 95 09/07/22 01:45 84 17 97 09/07/22 01:30 81 13 93 09/07/22 01:30 128/57 L 09/07/22 01:20 77 15 94 09/07/22 01:10 76 14 94 09/07/22 01:00 84 16 94 09/07/22 01:00 143/75 H 09/07/22 00:50 80 11 L 96
--- NOTE | 2022-09-07 12:47 | Discharge Summary ---
Date of Service September 07, 2022 Admission HPI Per Admitting Provider Name: CHAGO VAUGHN Patient Number: [id number] : 1945 Date of Service: 08/17/2022 Chief Complaint: _Follow-up for carotid stenosis HPI: _Mr. Vaughn is an elderly male who presents to Dr. Seymour's vascular surgery clinic today for a 6-month follow-up visit regarding his history of carotid stenosis. Patient was originally seen by Dr. Seymour and myself about 6 months ago, after a carotid ultrasound performed at an outside facility had indicated worsening of his left ICA stenosis. At the time the velocities appeared to indicate approximately 80% stenosis. Since patient was asymptomatic from this, we advised him to return in 6 months for reevaluation with a new ultrasound. Patient denies any significant changes in his health since being seen here 6 months ago. He specifically denies any symptoms of cerebrovascular insufficiency, including amaurosis, extremity weakness numbness or tingling, difficulty speaking or swallowing, facial droop, sudden onset confusion, other concerns. His carotid ultrasound performed prior to today's appointment demonstrates over 90% stenosis of his left ICA, with end-diastolic velocities of 128 cm/s. Current Home Meds: (Last Updated 08/17 10:53) albuterol (Albuterol (Eqv-ProAir HFA) 90 mcg/inh inhalation aerosol) inhale 2 puffs by mouth and INTO THE LUNGS every 4 to 6 hours if needed apixaban (Eliquis 2.5 mg oral tablet) 2.5 mg PO bid aspirin (aspirin 81 mg oral delayed release tablet) 81 mg PO Daily atorvastatin (atorvastatin 40 mg oral tablet) take 1 tablet by mouth once daily cholecalciferol (Vitamin D3 1000 intl units (25 mcg) oral tablet) 25 mcg PO qMonWedFri cycloSPORINE ophthalmic (Restasis 0.05% ophthalmic emulsion) 1 drop both eyes q12h fluticasone-salmeterol (fluticasone-salmeterol Diskus 500 mcg-50 mcg) 1 puff inhaled bid fluticasone/umeclidinium/vilanterol (Trelegy Ellipta 100 mcg-62.5 mcg-25 mcg/inh inhalation powder) 1 puff inhaled Daily levothyroxine (levothyroxine 75 mcg (0.075 mg) oral tablet) take 1 tablet by mouth every morning ON AN EMPTY STOMACH lisinopril (lisinopril 20 mg oral tablet) 20 mg PO Daily montelukast (montelukast 10 mg oral tablet) 10 mg PO qPM omega-3 polyunsaturated fatty acids (EPA Fish Oil oral capsule) 1 cap PO Daily Allergies and Sensitivities: Xarelto(Contact dermatitis) Past Medical History: Problems: Bilateral carotid artery stenosis Bilateral jowls Carotid stenosis Benign essential HTN Atherosclerotic heart disease Pure hypercholesterolemia CAD (coronary artery disease) OBJECTIVE Vitals: Last Updated 08/17/22 10:52 Date Temp BP Location Pulse RR SpO2 Pain 08/17/22 128/52 70 98 02/16/22 124/56 Right Arm 02/16/22 126/54 Left Arm 71 96 Vital Signs are the last 3 documented. No Orthostatic Data Available Height and Weight: Last Updated 02/16/22 09:07 Date BMI Wt(kg) Wt(lb) Method Ht(cm) (ft-in) Method 02/16/22 105.3 232 Standing Scale Heights and Weights are the last 3 documented. Physical Exam Constitutional: In general patient is a healthy-appearing well-nourished well- developed elderly male in no distress. He is alert and oriented without any deficits. His left neck does demonstrate a faint bruit. His heart is regular. His lungs are decreased throughout but clear. His abdomen is soft nontender with normoactive bowel sounds in all 4 quadrants. Brachial radial and femoral pulses are +3. Lower extremities the pulses are +2. He has brisk capillary refill and no sign of distal ischemia. ASSESSMENT: _ PLAN: _ 1 ) _bilateral carotid stenosis Patient appears to have significantly worsened left ICA stenosis since being seen here 6 months ago. He may be at increased risk for CVA. Due to this increase in velocities, we recommended that he undergo a CTA for better evaluation of his carotid disease. We will make further recommendations after he returns to our office to discuss the CTA findings. This was discussed with the patient. He expresses understanding and agreement. He will call for any other questions. Thank you for letting us participate in the care of this patient. Signature Line Electronic Signature on File CC: Melanie Fitzgerald MD [address] [facility] [id number] * CC: Josesito Garcia MD [address] [facility] [address] * Electronically Reviewed/Signed by: Becki Aggarwal PA-C Author Signature Dt/Tm:08/17/2022 01:16 PM [facility] [address], [address] [place] [address] Electronically Reviewed/Signed by: MD Martinez Pikeigngeoffrey Signature Dt/Tm: 08/21/2022 07:34 AM Napkin Machine Operator Juvenal Xu [facility] [address], [address] [place] [address] LM Result Type: HVI Outpt Note Date of Service: August 17, 2022 13:10 EST Authorization Status: Final Author or Import Date: ADAMS Aggarwal, Becki on August 17, 2022 13:16 EST Verified By: MD Lion, Ariel Kinsey on August 21, 2022 07:34 EST Encounter info: [id number], [place] [address], Clinic, 08/17/2022 - 08/17/2022 Chief Complaint Room #5- No new neurological symptoms. Bp at home is 120/70s. On Eliqquis with no bleeding issues. Reason for Consultation Left carotid artery stenosis History of Present Illness I had the pleasure of seeing Chago today for follow-up. As you know he is a 77-year-old male who was found to have a left internal carotid artery stenosis which has worsened. His CT angiogram showed greater than 80% narrowing of his left carotid artery. On reviewing the films it appears to be over 90%. He is asymptomatic for his carotid disease at this point. He has no complaints of claudication. Review of Systems 10 systems were reviewed. They are all negative except for the HPI. Physical Exam Vitals & Measurements Input and Output - Last 24 hours (Last 8 hours) No I/O Data Found: Patient is awake alert oriented x3. Is in no apparent distress. He does have a left carotid bruit. His lungs are clear. Heart had a regular rhythm. Abdominal exam is benign. His upper and lower extremity pulses are palpable. Neurologic exam is grossly intact. Assessment/Plan 1. Carotid stenosis, left At this point and recommended interventions of the carotid artery on the left side. He is a candidate for TCAR procedure. Risks options and benefits carotid endarterectomy and TCAR were discussed with the patient and his . They have elected to go ahead with the TCAR procedure. This will be scheduled in the near future. We will keep you informed of his to the results. Thank you very much for letting us participate in the care of this patient. Sincerely, Beto Seymour MD Problem List/Past Medical History Ongoing Atherosclerotic heart disease Benign essential HTN Bilateral carotid artery stenosis Bilateral jowls CAD (coronary artery disease) Carotid stenosis Carotid stenosis, left Pure hypercholesterolemia Historical No qualifying data Medications Inpatient No active inpatient medications Home Albuterol (Eqv-ProAir HFA) 90 mcg/inh inhalation aerosol aspirin 81 mg oral delayed release tablet, 81 mg= 1 tab, PO, Daily atorvastatin 40 mg oral tablet Eliquis 2.5 mg oral tablet, 2.5 mg= 1 tab, PO, bid EPA Fish Oil oral capsule, 1 cap, PO, Daily fluticasone-salmeterol Diskus 500 mcg-50 mcg, 1 puff, inhaled, bid levothyroxine 75 mcg (0.075 mg) oral tablet lisinopril 20 mg oral tablet, 20 mg= 1 tab, PO, Daily montelukast 10 mg oral tablet, 10 mg= 1 tab, PO, qPM Plavix 75 mg oral tablet, 75 mg= 1 tab, PO, Daily Restasis 0.05% ophthalmic emulsion, 1 drop, both eyes, q12h Trelegy Ellipta 100 mcg-62.5 mcg-25 mcg/inh inhalation powder, 1 puff, inhaled, Daily Vitamin D3 1000 intl units (25 mcg) oral tablet, 25 mcg= 1 tab, PO, qMonWedFri Allergies Xarelto (Contact dermatitis) Social History Smoking Status Former Smoker, quit > 1 yr Signature Line Electronic Signature on File Ariel Seymour MD Author Signature Dt/Tm: 08/22/2022 02:23 PM Napkin Machine Operator Juvenal Oates [facility] [place], [address] [place] [address] EJ Result Type: .Outpt Ltr Date of Service: August 22, 2022 14:19 EST Authorization Status: Final Subject: Consult Note Author or Import Date: MD Seymour Eugene J on August 22, 2022 14:23 EST Verified By: MD Seymour Eugene J on August 22, 2022 14:23 EST Encounter info: [id number], [facility], Clinic, 08/22/2022 - 08/22/2022 Admission Exam Per Admitting Provider Constitutional: In general patient is a healthy-appearing well-nourished well- developed elderly male in no distress. He is alert and oriented without any deficits. His left neck does demonstrate a faint bruit. His heart is regular. His lungs are decreased throughout but clear. His abdomen is soft nontender with normoactive bowel sounds in all 4 quadrants. Brachial radial and femoral pulses are +3. Lower extremities the pulses are +2. He has brisk capillary refill and no sign of distal ischemia. Principal Diagnosis 0 Discharge Exam Constitutional WD/WN, vitals as above Neck trachea midline Respiratory normal respiratory effort; no respiratory distress Auscultation: lungs clear to auscultation bilaterally Cardiovascular Rate/Rhythm: regular rate and regular rhythm Gastrointestinal (Abdomen) Inspection/Auscultation: abdomen normal to inspection; abdomen not distended Percussion/Palpation: abdomen soft Musculoskeletal no cyanosis or clubbing, extremities motor strength 5/5 Skin + incision (Mild edema of left supraclavicular area with ecchymosis. Soft to palpation) Neurologic CN's II-XI intact bilaterally and moves all extremities Psychiatric Orientation: alert and oriented x 3 Discharge Data Allergies Allergy/AdvReac Type Severity Reaction Status Date / Time rivaroxaban [From Xarelto] Allergy Intermediate Itching, Verified 09/06/22 11:24 rash Consultations 09/06/22 16:10 Consult Digester Operator Routine Procedures Performed Operation Date: 09/06/22 13:00 Actual Procedures p Left Transcarotid Artery Revascularization(Left) - Ariel Seymour MD Ordered Studies 09/06/22 07:41 EV angio carotid cerv LT Routine Hospital Course (1) S/P arterial stent: Patient day #1 after left carotid stenting. Doing well. Will D/C today. Total Time Total Time Spent Total Time Spent (In Minutes): 0 Discharge Plan Discharge Items Patient Disposition: Home - Self-Care Reason For Visit: Left Internal Carotid Artery Stenosis Discharge Diagnosis: Left carotid stenosis, post TCAR Activity: Per Instructions section Non-emergency contact: Surgeon Call non-emergency contact if: your temperature is above 101.5, your wound has increased redness, your wound has increased drainage and your wound pain has increased Follow-up/Referrals: PCP,NO [Primary Care Provider] - Diet: Heart Healthy Addtl Attending Provider Instructions: SPECIAL CARE INSTRUCTIONS: Medications: * Continue to take Aspirin and plavix without stopping as directed. Contact our office if you need to stop either of these meds within the first year post proce dure Incision Care: * You may shower, but do not rub incision. You may let the warm soapy water run over it. Be sure to dry the incision well after bathing. * Do not shave directly over the incision until it is healed. * DO NOT IMMERSE THE INCISION IN A TUB/POOL/etc. UNTIL HEALED. Restrictions: * Do not drive for at least one week or if you are still taking any narcotic pain medication. * Do not lift anything heavier than a gallon of milk for one week after going home. Possible Complications: * Numbness - It is normal to have some numbness around the incision. Numbness can extend beyond the incision to areas of the neck, ear and face. The numbness is due to bruising of nerves during the surgery and will gradually improve over a period of months. * Hoarseness/Difficulty Speaking and Swallowing - The bruising of nerves in the neck can also cause a hoarse voice, difficulty speaking or swallowing. This may improve over time, HOWEVER, if it continues for more than a few days please contact our office ([phone]). * Excessive Swelling - There will be some swelling immediately after surgery which usually resolves within one week. If you notice that the swelling is getting worse, notify your surgeon ([phone]). * Drainage/Bleeding - If there is any drainage or bleeding, it should be a very small amount (less than a teaspoon per day). If you have excessive bleeding or drainage from the incision, call your surgeon ([phone]) right away. ACTIVATION OF EMERGENCY MEDICAL SYSTEM: Call 911, immediately, if you experience any of the following: Warning Signs and Symptoms of Stroke: * Sudden numbness or weakness of the face, arm or leg, especially on one side of the body * Sudden confusion, trouble speaking or understanding * Sudden trouble seeing in one or both eyes * Sudden trouble walking, dizziness, loss of balance or coordination * Sudden severe headache with no cause Do not delay calling 911 if you experience any warning signs or symptoms of a stroke. Delay in seeking medical attention may affect what treatments can be given to you. Risk Factors for Stroke: You can reduce your chances of stroke by working with your medical provider to adopt a healthy lifestyle. Some specific ways to lower your chance of stroke are: * If you are a smoker, now is the time to stop smoking cigarettes * If you are diabetic, improve the control of your blood sugars * Avoid excessive amounts of alcohol * Control high blood pressure * Lose weight if you are overweight * Be sure to lead an active lifestyle * Eat a healthy diet low in salt, cholesterol and fat You should know about other risk factors for stroke that you are unable to control. These include: * Age 55 years or older * Male gender * Certain racial groups: , or / * Family History of Stroke, Mini stroke or Heart Attack * Sickle Cell Disease You will be receiving a call from the Vascular Surgery Nurse after you are discharged. FOLLOW UP VISIT: It is important for you to keep your follow up appointments with your medical provider. Keep any scheduled doctor appointments. Call [phone] to schedule a follow up appointment if one not already scheduled. Pending Studies at Discharge: No Stand-Alone Forms: My [facility] [employer], Smoking Cessation Medications and DC Order Prescriptions: New oxycodone-acetaminophen [Percocet] 5-325 mg tablet 1 tab PO Q6H PRN (Reason: pain) Qty: 10 0RF Continued atorvastatin 40 mg Tablet 40 mg PO PM lisinopril 20 mg Tablet 20 mg PO QAM cyanocobalamin (vitamin B-12) 1,000 mcg Tablet 1,000 mcg PO 3XWK aspirin [Aspir-81] 81 mg Tablet,Delayed Release (Dr/Ec) 81 mg PO QAM levothyroxine 75 mcg Tablet 75 mcg PO QAM montelukast [Singulair] 10 mg Tablet 10 mg PO QAM albuterol sulfate 90 mcg/actuation Hfa Aerosol Inhaler 1 inh INHALATION QID PRN (Reason: SHORT OF BREATH) Multivitamin 50 Plus Tablet 1 tab PO QAM Eliquis 2.5 mg Tablet 2.5 mg PO BID Trelegy Ellipta 200-62.5-25 mcg Blister With Device 1 inh INHALATION DAILY PRN (Reason: SHORT OF BREATH) clopidogrel [Plavix] 75 mg Tablet 75 mg PO DAILY Qty: 30 11RF Discharge Orders: Discharge Order (Routine); Ordered 09/07/22 Ordered By: Ariel Seymour Admission Data Admit Date/Time: 09/06/22 11:40 Attending Provider: Ariel Seymour Admit Provider: Ariel Seymour Primary Care Provider: PCP,NO Other Providers: Bebeto Cabrera ; John Ewing ; Karl Resendiz ; Nicolás Leonard ; Earl Acosta ; Redd Saucedo ; Pete Dowd ; Wilfrido Pressley ; Ml Sumner
[2022-09-08] MEDS ORDERED: CYANOCOBALAMIN (B-12) 500 MCG TABLET PO SCH (09:00)
== END 2022-09-07 13:48 | disposition home or self-care (01) | DRG 35 ==
LOC: ASU 10:53 → 1E 11:40
PROC: EV.TCAR (2022-09-06 13:00)